=== PATIENT | female | born 1960 | race Caucasian/White ===

== ENCOUNTER 2021-01-25 11:09 | Day surgery (SDC) | payer OTHER, SELFPAY ==
[~2021-01-25] VITALS: Ht 165.1 cm; Wt 99.3 kg
[2021-01-25] MEDS ORDERED: fentaNYL citrate 0.05 MG/ML VIAL ONE (12:34)
[2021-01-25] MEDS ORDERED: diphenhydrAMINE 50 MG/ML VIAL ONE (12:34)
[2021-01-25] MEDS ORDERED: MIDAZOLAM 5 MG/5 ML VIAL ONE (12:35)
[2021-01-25] MEDS ORDERED: fentaNYL citrate 0.05 MG/ML VIAL IVP ONE (14:15)
[2021-01-25] MEDS ORDERED: MIDAZOLAM 2 MG/2 ML VIAL IVP ONE (14:15)
== END 2021-01-25 13:56 | disposition home or self-care (01) ==
LOC: MDS 11:09 → MMU 11:10 → MDS 13:56
PROVIDERS: ATTEND Internal Medicine Gastroenterology
DX: R10.9 Unspecified abdominal pain (principal); K59.00 Constipation, unspecified; M19.90 Unspecified osteoarthritis, unspecified site; Z87.442 Personal history of urinary calculi; Z79.899 Other long term (current) drug therapy; Z20.828 Contact with and (suspected) exposure to other viral communicable diseases
CPT/HCPCS: 43239; J2250; J3010; U0003; 88305; 88312; 88313; 88342; J1200